=== PATIENT | male | born 2000 | race Caucasian/White ===

== ENCOUNTER → 2020-09-07 09:34 | Outpatient (BNVA) | payer MEDICAID, SELFPAY | PROVIDERS: Visit Provider Emergency Medicine | DX: Z20.822 Contact with and (suspected) exposure to COVID-19 (principal) | CPT/HCPCS: 87635 ==

== ENCOUNTER → 2022-08-30 17:10 | Outpatient (BNVA) | payer MEDICAID, SELFPAY | PROVIDERS: Visit Provider Emergency Medicine | DX: R07.9 Chest pain, unspecified (principal); R07.2 Precordial pain; R00.0 Tachycardia, unspecified; R06.02 Shortness of breath | CPT/HCPCS: 93005 ==

== ENCOUNTER 2022-08-30 18:25 | Emergency (ER) | payer MEDICAID, SELFPAY ==
[2022-08-30 18:26] VITALS: BP 127/79; PULSE 107; RESP 18; TEMP 36.7; O2SAT 97; BMI 30.9
--- NOTE | 2022-08-30 18:32 | XRR_ITS ---
PROCEDURE INFORMATION: Exam: XR Chest Exam date and time: 08/30/2022 6:58 PM Age: 21 years old Clinical indication: Pain; Chest pressure; Additional info: Cp SOB TECHNIQUE: Imaging protocol: Radiologic exam of the chest. Views: 1 view. COMPARISON: No relevant prior studies available. FINDINGS: Lungs: Unremarkable. No consolidation. Pleural spaces: Unremarkable. No pleural effusion. No pneumothorax. Heart/Mediastinum: Unremarkable. No cardiomegaly. Bones/joints: Unremarkable. XR/XR chest 1V portable [id number] IMPRESSION: No acute findings.
[2022-08-30] MEDS: sodium chloride 0.9% 1,000 ML 999 ML IV (18:44)
[2022-08-30 18:45] VITALS: RESP 18; O2SAT 98
[2022-08-30] MEDS: ondansetron 2 mg/ML SDV 2 mL 4 MG IVP (18:45)
[2022-08-30] MEDS: morphine 4 mg/mL SDV 1 mL IVP (18:45)
[2022-08-30 18:49] LABS: Basophils % 0.4 %; Eosinophils # 0.1 10^3/uL (0.0-0.8); Eosinophils % 1.3 %; Hematocrit 49.6 % (42.0-52.0); Hemoglobin 16.9 g/dL (11.7-16.6); Lymphocytes # 2.4 10^3/uL (0.8-4.8); Lymphocytes % 24.6 %; Mean Corpuscular HGB Conc 34.1 g/dL (30.0-36.0); Mean Corpuscular Hemoglobin 30.1 pg (28.0-34.0); Mean Corpuscular Volume 88.3 fl (80-94); Mean Platelet Volume 9.7 fL (7.4-10.4); Monocytes # 0.7 10^3/uL (0.2-0.9); Monocytes % 7.6 %; Neutrophils # 6.41 10^3/uL (1.8-7.7); Neutrophils % 65.9 %; Nucleated Red Blood Cells % 0 %; Platelet Count 378 10^3/cmm (130-400); Red Blood Count 5.62 10^6/uL (4.1-5.3); Red Cell Distribution Width 12.1 % (12.1-15.1); White Blood Count 9.7 10^3/uL (4.0-10.0)
[2022-08-30 19:07] LABS: D Dimer 0.28 ug/mIFEU (0-0.59)
--- NOTE | 2022-08-30 19:07 | ECG_ITS ---
[facility] Test Date: 2022-08-30 Pat Name: Tian Jordan Jr Department: Room: Gender: Male Deckhand Maintenance: : 2000 Requested By: Tremayne Peace Order Number: [id number] Kaur MD: Jerome Bran M.D. Measurements Intervals [place] Rate: 85 P: 38 RI: 177 QRS: 20 QRSD: 91 T: 19 QT: 350 QTc: 418 Interpretive Statements SINUS RHYTHM WITH MARKED SINUS ARRHYTHMIA No previous ECG available for comparison Electronically Signed On 08-31-2022 1:08:32 CDT by Jerome Bran M.D. [id number]
--- NOTE | 2022-08-30 19:08 | W.ED.CHESTPA ---
HPI - Chest Pain General: Chief Complaint: Chest Pain Stated Complaint: chest pain Time Seen by Provider: 08/30/22 18:27 Source: patient History of Present Illness: 21-year-old male sent from urgent care due to chest discomfort with shortness of breath. Chest pain is pleuritic on the left side, and reproducible. There was some concern as he was tachycardic and urgent care, and PE was on the differentials, so he was sent for evaluation. Pain is improved to some degree here. MD complaint: chest pain Pertinent past history: other Onset (ago): day(s) (2) Prior episodes: No Onset: during rest Pain location: substernal and left chest Pain radiation: none Quality: sharp Relieving factors: nothing Exacerbating factors: inspiration Associated symptoms: Reports dyspnea; Deny abdominal pain, diaphoresis, fever(s), leg edema, nausea, palpitations or vomiting Treatment prior to arrival: none Review of Systems Const: Denies: fever(s) or diaphoresis ENMT: Denies: throat pain Card: Reports: chest pain; Denies: palpitations Resp: Reports: dyspnea; Denies: productive cough or non-productive cough GI: Denies: abdominal pain, nausea or vomiting Musc: Denies: back pain Skin/Breast: Denies: rash PFSH ED PFSH: Medical History Chest pain Shortness of breath Sinus tachycardia Physical Exam Const: COMMON NORMALS: no acute distress GENERAL APPEARANCE: cooperative; not ill appearing and not frail appearing HENMT: COMMON NORMALS: normocephalic, atraumatic and Normal external nose present HEAD & SCALP: normocephalic and atraumatic FACE & SINUS: normal facial exam and face symmetric NOSE: Normal external nose present Eye: COMMON NORMALS: Equal, round and reactive pupils present and EOMs intact bilaterally PUPIL: Yes Equal, round and reactive pupils present Neck/C-Spine: GENERAL: Yes trachea midline Chest: CHEST: Yes Symmetrical chest wall rise and Yes tenderness Resp: COMMON NORMALS: normal respiratory effort, No retractions, No use of accessory muscles and clear to auscultation bilaterally AUSCULTATION: clear to auscultation bilaterally Cardio: COMMON NORMALS: regular rate and regular rhythm RATE: regular rate RHYTHM: regular rhythm GI: COMMON NORMALS: Normal to inspection, nondistended, normoactive bowel sounds present Extremity: COMMON NORMALS: no pedal edema Neuro: JARROD COMA SCALE: document GCS findings [place] coma scale eye opening: Spontaneous [place] coma scale verbal response: Orientated [place] coma scale motor response: Obey commands Jarrod coma scale total score: 15 SENSORY EXAM: Yes extremities (intact) Psych: COMMON NORMALS: speech normal SPEECH: Yes normal speech Skin: COMMON NORMALS: no rashes or lesions noted GENERAL SKIN EXAM: no rashes or lesions noted Course Vital Signs: Vital signs: Vital Signs Temperature 98.1 F 08/30/22 18:26 Pulse Rate 109 H 08/30/22 20:23 Respiratory Rate 21 H 08/30/22 20:23 Blood Pressure 103/71 08/30/22 20:23 Pulse Oximetry 96 08/30/22 20:23 Oxygen Delivery Me thod Room Air 08/30/22 18:26 MDM - Chest Pain Medical Decision Making Pain is significantly improved after morphine. Chest x-ray is negative. CBC is normal. BMP is normal. Liver enzymes are normal. Troponin is 7. BNP is normal. D-dimer is normal at 0.28. EKG shows sinus rhythm with sinus arrhythmia, rate of 85, normal axis normal intervals and no ST changes. He will be allowed home with treatment for pleuritic chest wall pain. Lab Data 08/30/22 17:35 08/30/22 17:35 Radiology Impressions Chest X-Ray 08/30/22 18:32 IMPRESSION: No acute findings. Laboratory Results WBC 9.7 10^3/uL (4.0-10.0) 08/30/22 17:35 RBC 5.62 10^6/uL (4.1-5.3) H 08/30/22 17:35 Hgb 16.9 g/dL (11.7-16.6) H 08/30/22 17:35 Hct 49.6 % (42.0-52.0) 08/30/22 17:35 MCV 88.3 fl (80-94) 08/30/22 17:35 MCH 30.1 pg (28.0-34.0) 08/30/22 17:35 MCHC 34.1 g/dL (30.0-36.0) 08/30/22 17:35 RDW 12.1 % (12.1-15.1) 08/30/22 17:35 Plt Count 378 10^3/cmm (130-400) 08/30/22 17:35 MPV 9.7 fL (7.4-10.4) 08/30/22 17:35 Neut % (Auto) 65.9 % 08/30/22 17:35 Lymph % (Auto) 24.6 % 08/30/22 17:35 [place] % (Auto) 7.6 % 08/30/22 17:35 Eos % (Auto) 1.3 % 08/30/22 17:35 Baso % (Auto) 0.4 % 08/30/22 17:35 Neut # (Auto) 6.41 10^3/uL (1.8-7.7) 08/30/22 17:35 Lymph # (Auto) 2.4 10^3/uL (0.8-4.8) 08/30/22 17:35 [place] # (Auto) 0.7 10^3/uL (0.2-0.9) 08/30/22 17:35 Eos # (Auto) 0.1 10^3/uL (0.0-0.8) 08/30/22 17:35 Baso # (Auto) 0.0 10^3/uL (0.0-0.1) 08/30/22 17:35 Nucleated RBC % (auto) 0 % 08/30/22 17:35 Nucleated RBCs # 0.0 /100WBC 08/30/22 17:35 D-Dimer 0.28 ug/mIFEU (0-0.59) 08/30/22 17:35 Sodium 139 mmol/L (136-145) 08/30/22 17:35 Potassium 4.0 mmol/L (3.5-5.1) 08/30/22 17:35 Chloride 103 mmol/L (98-107) 08/30/22 17:35 Carbon Dioxide 25 mmol/L (22-29) 08/30/22 17:35 Anion Gap 15.0 (5-19) 08/30/22 17:35 BUN 14 mg/dL (6-20) 08/30/22 17:35 Creatinine 1.0 mg/dL (0.7-1.2) 08/30/22 17:35 GFR Calculation 93.4 mL/min (90-130) 08/30/22 17:35 Glucose 119 mg/dL (65-115) H 08/30/22 17:35 Calculated Osmolality 290 mOsm/kg (285-295) 08/30/22 17:35 Calcium 9.7 mg/dL (8.5-10.5) 08/30/22 17:35 Total Bilirubin 0.4 mg/dL (0.15-1.2) 08/30/22 17:35 AST 22 U/L (0-40) 08/30/22 17:35 ALT 44 U/L (0-41) H 08/30/22 17:35 Alkaline Phosphatase 112 U/L (40-130) 08/30/22 17:35 Troponin T Baseline 7 ng/L (0-15) 08/30/22 17:35 Troponin T 120 Minute 8.54 ng/L (0-15) 08/30/22 19:44 Delta Troponin T 1.54 ABS# (0-10) 08/30/22 19:44 NT-Pro-B Natriuret Pep 36 pg/mL (0-125) 08/30/22 17:35 Total Protein 7.2 g/dL (6.6-8.7) 08/30/22 17:35 Albumin 4.8 g/dL (3.5-5.2) 08/30/22 17:35 Globulin 2.4 g/dL (1.3-4.6) 08/30/22 17:35 Discharge Plan Discharge Patient Disposition: Home Clinical Impression: Acute costochondritis Condition: Stable Prescriptions: New ketorolac 10 mg tablet 10 mg PO TID PRN (Reason: pain) Qty: 10 0RF Discharge Orders: Discharge ED (Routine); Ordered 08/30/22 Ordered By: Tremayne Hager Patient Instructions: Costochondritis (ED), Opioid Safety, Pain Management Activity Restrictions/Additional Instructions: Return for fever, worsening pain or shortness of breath despite treatment, other concerning symptoms. See your doctor next week. Stay hydrated. Stand Alone Forms: Work/School Release Coding Level of Care Code ED Biomedical Equipment Support Specialist for Manjinder Bryant
[2022-08-30 19:13] LABS: Troponin(5th) Baseline 7 ng/L (0-15)
[2022-08-30 19:23] LABS: Alanine Aminotransferase 44 U/L (0-41); Albumin Level 4.8 g/dL (3.5-5.2); Alkaline Phosphatase 112 U/L (40-130); Aspartate Amino Transferase 22 U/L (0-40); Blood Urea Nitrogen 14 mg/dL (6-20); Calcium 9.7 mg/dL (8.5-10.5); Carbon Dioxide 25 mmol/L (22-29); Chloride 103 mmol/L (98-107); Globulin 2.4 g/dL (1.3-4.6); Glomerular Filtration Rate 93.4 mL/min (90-130); Glucose 119 mg/dL (65-115); NT Pro B Type Natriuretic Pept 36 pg/mL (0-125); Osmolality Calculated 290 mOsm/kg (285-295); Sodium 139 mmol/L (136-145); Total Bilirubin 0.4 mg/dL (0.15-1.2); Total Protein 7.2 g/dL (6.6-8.7)
[2022-08-30 20:20] LABS: Troponin 5 2HR 8.54 ng/L (0-15)
[2022-08-30] MEDS: ketorolac 30 mg/mL INJ 15 MG IVP (20:22)
[2022-08-30 20:23] VITALS: BP 103/71; PULSE 109; RESP 21; O2SAT 96
[2022-08-30 20:23] LABS: Troponin 5 2HR Delta 1.54 ABS# (0-10)
== END 2022-08-30 20:30 | disposition home or self-care (01) ==
PROVIDERS: Emergency Provider Emergency Medicine
DX: M94.0 Chondrocostal junction syndrome [Tietze] (principal)
CPT/HCPCS: 36415; 71045; 80053; 83880; 84484; 85025; 85378; 93005; 96374; 96375; 99285; J1885; J2270; J2405; J7030

== ENCOUNTER → 2023-04-18 09:59 | Outpatient (BNVA) | payer MEDICAID, SELFPAY | PROVIDERS: Visit Provider Emergency Medicine | DX: B34.9 Viral infection, unspecified (principal) | CPT/HCPCS: 87400; 87426 ==